=== PATIENT | male | born 1995 | race Caucasian/White ===

== ENCOUNTER 2024-09-20 23:32 | Emergency (ER) | payer SELFPAY ==
[~2024-09-20] VITALS: Ht 182.9 cm; Wt 92.4 kg
[2024-09-20 23:55] VITALS: O2SAT 98
[2024-09-21] MEDS: LIDOCAINE HCL/PF 1% 10 MG/ML 5ML VIAL INFIL ONE (01:00)
[2024-09-21] MEDS: BACITRACIN ZINC OINT UDPKT TOP ONE (01:34)
[2024-09-21] MEDS ORDERED: BO1 TP (02:57)
[2024-09-21 03:16] VITALS: BP 126/74; PULSE 66; RESP 16; TEMP 37; O2SAT 99
[2024-09-21] MEDS: TETANUS, DIPHTHERIA, PERTUSSIS VAC/PF 0.5ML (>10YR OLD) IM ONE (03:19)
== END 2024-09-21 03:20 | disposition home or self-care (01) ==
LOC: ER 23:32
DX: S01.01XA Laceration without foreign body of scalp, initial encounter (principal); J32.0 Chronic maxillary sinusitis; W10.9XXA Fall (on) (from) unspecified stairs and steps, initial encounter; Y93.89 Activity, other specified; Y92.89 Other specified places as the place of occurrence of the external cause; Y99.8 Other external cause status
CPT/HCPCS: 99285; 70450; 90715; 12002; 90471; J2003; Z7610

== ENCOUNTER 2024-09-23 16:02 | Emergency (ER) | payer SELFPAY ==
[~2024-09-23] VITALS: Ht 182.9 cm; Wt 92.0 kg
[~2024-09-23 16:02] MED LIST: BO1 TP
[2024-09-23 16:10] VITALS: O2SAT 96
[2024-09-23 16:50] VITALS: BP 135/84; PULSE 80; RESP 18; TEMP 36.8; O2SAT 98
== END 2024-09-23 16:54 | disposition home or self-care (01) ==
LOC: ER 16:02
DX: S01.01XD Laceration without foreign body of scalp, subsequent encounter (principal); W01.0XXD Fall on same level from slipping, tripping and stumbling without subsequent striking against object, subsequent encounter
CPT/HCPCS: 99282

== ENCOUNTER 2024-09-30 18:44 | Emergency (ER) | payer SELFPAY ==
[~2024-09-30] VITALS: Ht 182.9 cm; Wt 94.0 kg
[2024-09-30 18:51] VITALS: O2SAT 99
[2024-09-30 19:03] VITALS: BP 111/77; PULSE 60; RESP 18; TEMP 36.9; O2SAT 99
== END 2024-09-30 19:45 | disposition home or self-care (01) ==
LOC: ER 18:44
DX: S01.01XD Laceration without foreign body of scalp, subsequent encounter (principal); Z79.899 Other long term (current) drug therapy; X58.XXXD Exposure to other specified factors, subsequent encounter
CPT/HCPCS: 99281